=== PATIENT | male | born 1990 | race African-American/Black ===

== ENCOUNTER 2019-05-08 14:04 | Day surgery (SDC) | payer BC ==
[~2019-05-08] VITALS: Ht 190.5 cm; Wt 298.2 kg
[~2019-05-08 14:04] MED LIST: PENICILLIN V250 MG PO
[2019-05-08 14:40] VITALS: BP 162/118; PULSE 124; TEMP 98.6
[2019-05-08] MEDS ORDERED: PROVENTIL0.09 MG/A1 IH (14:47)
--- NOTE | 2019-05-08 14:48 | NUR ---
TO RM AT 1418- CALL LIGHT IN REACH FAMILY AT BEDSIDE
[2019-05-08 16:40] VITALS: BP 159/101; PULSE 100; TEMP 98.7
--- NOTE | 2019-05-08 16:40 | NUR ---
Patient arrives to [facility] [place] [facility] via cart, accompanied by SAMMI Petersen. He is alert and oriented, sitting up in bed. He denies any pain, nausea, or need. Monitoring is applied for post-op vitals. VSS on room air. Offered and receives water, ice chips, and chocolate ice cream. His family is at the bedside.
[2019-05-08 16:55] VITALS: BP 164/84; PULSE 100
--- NOTE | 2019-05-08 16:55 | NUR ---
Patient is resting in his room comfortably. Tolerating PO well. Denies any pain, nausea, or need.
[2019-05-08 17:07] VITALS: TEMP 97.8
[2019-05-08 17:10] VITALS: BP 159/118; PULSE 100
--- NOTE | 2019-05-08 17:10 | NUR ---
Patient resting comfortably in room. VSS on room air. BP is elevated, but within limits of admission vitals. Per anesthesia provider, BP is not being treated as patient has an appointment to follow-up with his PCP outpatient.
--- NOTE | 2019-05-08 17:30 | NUR ---
Discharge criteria has been met. Discharge instructions discussed, denies any questions, and verbalizes understanding. PIV removed with catheter intact and hemostasis achieved. Patient changes to clothing independently. Escorted to exit via wheelchair. Discharged to home with ride in private vehicle at 1730.
== END 2019-05-08 17:30 | disposition home or self-care (01) ==
LOC: SDCO 14:04
DX: K29.30 Chronic superficial gastritis without bleeding (principal); K25.7 Chronic gastric ulcer without hemorrhage or perforation; I10 Essential (primary) hypertension; G47.33 Obstructive sleep apnea (adult) (pediatric); F41.9 Anxiety disorder, unspecified; K76.0 Fatty (change of) liver, not elsewhere classified; Z68.45 Body mass index [BMI] 70 or greater, adult; Z87.891 Personal history of nicotine dependence
CPT/HCPCS: J2250; J7120

== ENCOUNTER 2019-05-22 15:30 | Emergency (ER) | payer BC ==
[~2019-05-22] VITALS: Ht 190.5 cm; Wt 300.0 kg
[~2019-05-22 15:30] MED LIST changes: +PROVENTIL0.09 MG/A1 IH
[2019-05-22 15:58] VITALS: TEMP 97.9
[2019-05-22] MEDS ORDERED: PRILOSEC 20MG20 MG PO (16:31)
[2019-05-22] MEDS ORDERED: PAMELOR 25MG25 MG PO (16:32)
[2019-05-22] MEDS ORDERED: HYGROTON50 MG PO (16:33)
[2019-05-22] MEDS ORDERED: COZAAR100 MG (16:33)
[2019-05-22] MEDS ORDERED: TENORMIN100 MG PO (16:33)
[2019-05-22 17:01] LABS: BASO # 0.1 (0.0-0.2); EOS % 0.6 % (0-4.0); GRAN # 4.4 (1.4-6.5); GRAN % 60.5 % (42.2-75.2); HEMATOCRIT 43.9 % (42.0-52.0); HEMOGLOBIN 13.5 g/dl (13.5-18.0); LYMPH # 2.3 (1.2-3.4); LYMPH % 32.2 % (20.0-51.0); MEAN CELL VOLUME 92 fl (80.0-100.0); MEAN CORPUSCULAR HEMOGLOBIN 28 pg (27.0-31.0); MEAN CORPUSCULAR HGB CONC 31 g/dl (33.0-37.0); MEAN PLATELET VOLUME 9.8 fl (7.4-10.4); MONO # 0.4 (0.1-0.6); MONO % 5.4 % (1.7-9.3); PLATELET COUNT 375 K/mm3 (130-400); RED BLOOD COUNT 4.79 M/mm3 (4.20-5.60); REDCELL DISTRIBUTION WIDTH-CV 13.2 % (11.5-14.5)
[2019-05-22 17:13] LABS: ALBUMIN 3.5 gm/dL (3.5-5.0); CALCIUM 8.6 mg/dL (8.4-10.2); CREATININE, serum 0.96 (0.66-1.25); POTASSIUM 4.7 mmol/L (3.4-5.0); TOTAL PROTEIN 7.2 gm/dL (6.4-8.2)
[2019-05-22 17:26] LABS: TROPONIN-I 0.11 ng/mL (0.000-0.035)
[2019-05-22 21:09] VITALS: BP 152/112; PULSE 112
== END 2019-05-22 21:21 | disposition short-term general hospital (02) ==
LOC: COL.ER 15:30
PROVIDERS: Emergency Medicine
DX: I50.9 Heart failure, unspecified (principal); G89.29 Other chronic pain; R10.13 Epigastric pain; I10 Essential (primary) hypertension; R79.89 Other specified abnormal findings of blood chemistry
CPT/HCPCS: J1644; J1940; J2270; J2405; J7050

== ENCOUNTER 2023-05-28 22:20 | Emergency (ER) | payer BC ==
[~2023-05-28] VITALS: Ht 190.5 cm; Wt 263.6 kg
[~2023-05-28 22:20] MED LIST changes: +COZAAR100 MG; +HYGROTON50 MG PO; +PAMELOR 25MG25 MG PO; +PRILOSEC 20MG20 MG PO; +TENORMIN100 MG PO
[2023-05-28 22:22] VITALS: TEMP 98.6
[2023-05-28] MEDS ORDERED: ROXICODONE 55 MG/TAB PO (22:50)
[2023-05-28 23:15] VITALS: BP 139/75; PULSE 119
== END 2023-05-28 23:18 | disposition home or self-care (01) ==
LOC: COL.ER 22:20
DX: M25.561 Pain in right knee (principal); M25.461 Effusion, right knee; W01.0XXA Fall on same level from slipping, tripping and stumbling without subsequent striking against object, initial encounter